=== PATIENT | male | born 1950 | race African-American/Black ===

== ENCOUNTER 2018-06-06 09:40 | Emergency (ER) | payer MEDICARE, MEDICAID ==
[~2018-06-06] VITALS: Ht 175.3 cm; Wt 72.7 kg
[2018-06-06] MEDS ORDERED: SODIUM CHLORIDE 0.9% 1,000 ML IV ONE (10:45)
[2018-06-06 10:49] LABS: BASOPHILS % 0.8 % (0.0-2.0); EOSINOPHILS % 1.5 % (0.0-5.0); HEMATOCRIT. 46.3 % (42.0-52.0); HEMOGLOBIN. 15.5 g/dL (14.0-18.0); LYMPHOCYTES % 18.4 % (20.0-50.0); MEAN CORPUSCULAR HEMOGLOBIN 30.7 pg (28.0-32.0); MEAN CORPUSCULAR VOLUME 91.7 fL (80.0-94.0); MEAN PLATELET VOLUME 8.5 fl (7.4-10.4); MONOCYTES % 9.4 % (2.0-8.0); NEUTROPHILS % 69.9 % (40.0-76.0); PLATELET 238 x1000/uL (130-400); RED BLOOD CELL COUNT 5.05 mill/uL (4.7-6.1); RED CELL DISTRIBUTION WIDTH 13.2 % (11.6-14.6)
[2018-06-06 10:54] LABS: CHLORIDE 106 mEq/L (98-107)
[2018-06-06 10:59] LABS: ETHANOL BLOOD < 10 mg/dL
[2018-06-06 13:18] LABS: CLARITY URINE CLEAR (CLEAR); COLOR URINE YELLOW (YELLOW); KETONES URINE NEGATIVE (NEGATIVE); LEUKOCYTE ESTERASE URINE NEGATIVE (NEGATIVE); NITRITE URINE NEGATIVE (NEGATIVE); OCCULT BLOOD URINE NEGATIVE (NEGATIVE); PH URINE 5.5 (4.5-8.0); PROTEIN URINE NEGATIVE (NEGATIVE); SPECIFIC GRAVITY URINE 1.018 (1.005-1.030); UROBILINOGEN URINE 0.2 E.U./dL (0.2-1.0)
[2018-06-06 13:51] LABS: *AMPHETAMINES SCREEN URINE NEGATIVE (NEGATIVE); *BARBITURATES SCREEN URINE NEGATIVE (NEGATIVE); *BENZODIAZEPINES SCREEN URINE NEGATIVE (NEGATIVE); *COCAINE SCREEN URINE NEGATIVE (NEGATIVE); CANNABINOID URINE SCREEN NEGATIVE (NEGATIVE); METHADONE URINE SCREEN NEGATIVE (NEGATIVE); OPIATES URINE SCREEN NEGATIVE (NEGATIVE)
[2018-06-06 13:52] LABS: PHENCYCLIDINE URINE SCREEN NEGATIVE (NEGATIVE)
[2018-06-06 15:59] VITALS: BP 114/70
== END 2018-06-06 16:00 | disposition home or self-care (01) ==
LOC: ER 11:22
DX: R42 Dizziness and giddiness (principal); H54.40 Blindness, one eye, unspecified eye
CPT/HCPCS: 36415; 70450; 71045; 80053; 80305; 81003; 83880; 84484; 85025; 93005; 96360; 96361; 99284; G0482; J7030

== ENCOUNTER 2021-01-31 18:34 | Emergency (ER) | payer MEDICARE, MEDICAID ==
[~2021-01-31] VITALS: Ht 175.3 cm; Wt 61.0 kg
[2021-01-31 21:28] LABS: HEMATOCRIT. 43.9 % (42.0-52.0); HEMOGLOBIN. 14.5 g/dL (14.0-18.0); MEAN CORPUSCULAR VOLUME 90.7 fL (80.0-94.0); MEAN PLATELET VOLUME 8.4 fl (7.4-10.4); PLATELET 217 x1000/uL (130-400); RED BLOOD CELL COUNT 4.84 mill/uL (4.7-6.1)
[2021-01-31 21:31] LABS: CHLORIDE 109 mEq/L (98-107)
[2021-01-31 22:12] LABS: PLATELET ESTIMATE NORMAL
[2021-02-01 00:01] LABS: CLARITY URINE CLEAR (CLEAR); COLOR URINE YELLOW (YELLOW); KETONES URINE TRACE (NEGATIVE); LEUKOCYTE ESTERASE URINE NEGATIVE (NEGATIVE); NITRITE URINE NEGATIVE (NEGATIVE); OCCULT BLOOD URINE NEGATIVE (NEGATIVE); PH URINE 5.5 (4.5-8.0); PROTEIN URINE NEGATIVE (NEGATIVE); SPECIFIC GRAVITY URINE 1.028 (1.005-1.030)
[2021-02-01 08:07] VITALS: BP 109/70
== END 2021-02-01 08:14 | disposition home or self-care (01) ==
LOC: EDBD 18:34 → ER 18:34
DX: R10.9 Unspecified abdominal pain (principal); J44.9 Chronic obstructive pulmonary disease, unspecified
CPT/HCPCS: 36415; 71045; 80053; 81003; 83880; 84484; 85025; 93005; 99285